=== PATIENT | female | born 1950 | race Caucasian/White ===

== ENCOUNTER 2023-03-08 20:16 | Emergency (ER) | payer MEDICARE ==
--- NOTE | 2023-03-08 20:48 | ED Cough/URI ---
General Chief Complaint: Cough/Cold/Flu Symptoms Stated Complaint: RUNNY NOSE|SNEEZING|ITCHY THROAT Nursing Triage Note: Pt complaining of a sore throat, fever, and nasal drainage that started on Source: patient Exam Limitations: no limitations History of Present Illness Date Seen by Provider: March 08, 2023 Time Seen by Provider: 20:48 Initial Comments 72-year-old female patient with history of hypertension complaining of nasal c ongestion, fever up to 100.8, sore throat for the last 3 days without cough, shortness of breath, headache, nausea and vomiting, diarrhea and constipation, myalgia. Patient had positive COVID test at home but wanted to repeat the test to confirm the diagnosis. 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 Patient states she is taking 5 days of Medrol Dosepak with the last dose today for left knee swelling and pain. Patient stated her and grandchild had the same symptoms 3 days ago and her had positive COVID test today also. Patient is concerned for taking treatment for COVID if she has COVID because of she is taking prednisone and it makes her immune system down. Patient has COVID vaccination and several booster shot. Allergies and Home Medications Patient Home Medication List Home Medication List Reviewed: Yes Review of Systems Review of Systems Constitutional: see HPI EENTM: see HPI Respiratory: no symptoms reported Cardiovascular: no symptoms reported Gastrointestinal: no symptoms reported Genitourinary: no symptoms reported Musculoskeletal: see HPI Skin: no symptoms reported Psychiatric/Neurological: No Symptoms Reported Hematologic/Lymphatic: No Symptoms Reported All Other Systems Reviewed Negative Unless Noted: Yes Past Zlualuf-Swgbji-Ibsgbo Hx Patient Social History Tobacco Use?: No Use of E-Cig and/or Vaping dev: No Substance use?: No Alcohol Use?: No Pt feels they are or have been: No Physical Exam Vital Signs - First Documented 03/08/23 20:25 Temp 36.6 Pulse 95 Resp 18 B/P (MAP) 151/88 (109) Pulse Ox 98 O2 Delivery Room Air Capillary Refill : Less Than 3 Seconds Height: '" Weight: lbs. oz. kg; BMI Method: General Appearance: WD/WN, no apparent distress Eyes: Right Eye Normal Inspection, Right Eye PERRL, Right Eye EOMI; Bilateral Eye Normal Inspection, Bilateral Eye PERRL, Bilateral Eye EOMI, Bilateral Eye Abnormal EOM HEENT: PERRL/EOMI, normal ENT inspection, TMs normal, pharyngeal erythema (Without acute), other (Nasal congestion) Neck: non-tender, full range of motion, supple, normal inspection, carotid bru it Respiratory: chest non-tender, lungs clear, normal breath sounds, no respiratory distress, no accessory muscle use, respiratory distress Cardiovascular: normal peripheral pulses, regular rate, rhythm, no edema, no gallop, no JVD, no murmur Gastrointestinal: normal bowel sounds, non tender, soft, no organomegaly, no pulsatile mass Genital/Rectal: normal genital exam; No normal genital exam Extremities: normal range of motion, non-tender, normal inspection, no pedal edema, no calf tenderness, normal capillary refill, pelvis stable Neurologic/Psychiatric: 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 tested, no motor/sensory deficits, alert, normal mood/affect, oriented x 3 Skin: normal color, warm/dry, cyanosis, cool, diaphoresis, damp Lymphatic: no adenopathy, axilla node tender (R), axilla node tender (L), inguinal node tender (R), inguinal node tender (L) Progress/Results/Core Measures Suspected Sepsis SIRS Temperature: Pulse: 95 Respiratory Rate: 18 Blood Pressure 151 /88 Mean: 109 Results/Orders Lab Results Laboratory Tests Test 03/08/23 20:40 Range/Units SARS-CoV-2 RNA (RT-PCR) Detected H Not Detecte My Orders Orders - DHARMESH ESPINOZA MD Covid 19 Inhouse Test (03/08/23 20:48) Isolation Central Supply Req (03/08/23 20:48) Vital Signs/I&O 03/08/23 03/08/23 20:25 21:11 Temp 36.6 36.6 Pulse 95 95 Resp 18 18 B/P (MAP) 151/88 (109) 151/88 Pulse Ox 98 98 O2 Delivery Room Air Room Air Capillary Refill : Less Than 3 Seconds Blood Pressure Mean: 109 Progress Note : Progress Note Patient with nasal congestion and sore throat and low-grade fever for 3 days and sick contact at home with positive home COVID test who wanted to have confirmation of COVID infection and had positive COVID test in ER. Patient had unremarkable physical exam except for mild nasal congestion and pharyngeal erythema. Patient was afebrile and had stable vital sign. Patient was consented for treatment for COVID and advised that she does not have high risk condition for getting COVID treatment and her symptom is very mild and just needs supportive treatment with Tylenol and ibuprofen for fever and pain. Patient advised for quarantine for 5 days and follow-up with primary care physician or return to ER as needed. Departure Impression Primary Impression: COVID-19 virus infection Disposition: HOME, SELF-CARE Condition: Stable Departure-Patient Inst. Decision time for Depature: 21:08 Patient Instructions: COVID-19 ED Add. Discharge Instructions: Drink more liquids Take Tylenol or ibuprofen alternate for fever and pain Follow-up with your primary care physician or return to ER as needed All discharge instructions reviewed with patient and/or family. Voiced understanding. DHARMESH ESPINOZA MD March 08, 2023 20:48
[2023-03-08 21:11] VITALS: BP 151/88
== END 2023-03-08 21:12 | disposition home or self-care (01) ==
LOC: ER FS 20:23
DX: U07.1 COVID-19 (principal); R05.9 Cough, unspecified; R09.81 Nasal congestion; R09.89 Other specified symptoms and signs involving the circulatory and respiratory systems; R50.9 Fever, unspecified; R51.9 Headache, unspecified; R11.2 Nausea with vomiting, unspecified; R06.02 Shortness of breath; R19.7 Diarrhea, unspecified; Z28.310 Unvaccinated for COVID-19
CPT/HCPCS: 87636; 99283